=== PATIENT | male | born 1985 | race Caucasian/White ===

== ENCOUNTER → 2017-02-04 17:12 | Outpatient (CLI) | payer MEDICAID | END | disposition home or self-care (01) | LOC: D.LABREF 17:12 | DX: D17.9 Benign lipomatous neoplasm, unspecified (principal) ==

== ENCOUNTER → 2018-04-20 10:42 | Outpatient (CLI) | payer MEDICAID | END | disposition home or self-care (01) | LOC: D.MRI 10:30 | DX: R42 Dizziness and giddiness (principal) ==

== ENCOUNTER 2019-03-10 14:34 | Emergency (ER) | payer MEDICAID ==
[~2019-03-10] VITALS: Ht 180.3 cm; Wt 81.8 kg
[2019-03-10 14:39] VITALS: Ht 180.3 cm; Wt 81.8 kg
[2019-03-10] MEDS ORDERED: OMEPRAZOLE20 M1 PO (14:41)
[2019-03-10] MEDS ORDERED: [UNRECOGNIZED DRUG - OTHER] (14:41)
[2019-03-10 15:05] LABS: APPEARANCE CLEAR (CLEAR); BILIRUBIN NEGATIVE (NEGATIVE); COLOR STRAW (YELLOW); GLUCOSE NEGATIVE (NEGATIVE); KETONE NEGATIVE (NEGATIVE); NITRITE NEGATIVE (NEGATIVE); PROTEIN NEGATIVE (NEGATIVE); SPECIFIC GRAVITY 1.005 (1.005-1.020); UROBILINOGEN NORMAL (NORMAL)
[2019-03-10 15:05] LABS: BASOPHILS 0.2 % (0-2); EOSINOPHILS 0.7 % (0-7); HEMATOCRIT 42.9 % (42.0-54.0); HEMOGLOBIN 15.7 g/dL (13.5-17.5); IMMATURE GRANULOCYTES 0.2 % (0-5); LYMPHOCYTES 21.7 % (15-50); MCH 32.9 pg (26.0-34.0); MCHC 36.6 g/dL (31.0-37.0); MCV 89.9 fL (80.0-100.0); MEAN PLATELET VOLUME 10.5 fL (7.4-10.4); MONOCYTES 8.6 % (2-11); NEUTROPHILS 68.6 % (40-80); PLATELET COUNT 197 10x3/uL (130-400); RBC 4.77 10x6/uL (4.20-6.10); RDW 13.3 % (11.5-14.5); WBC 10.7 10x3/uL (4.8-10.8)
[2019-03-10 15:11] LABS: UDS - AMPHET NEGATIVE QUAL (NEGATIVE); UDS - BARB NEGATIVE QUAL (NEGATIVE); UDS - BENZO NEGATIVE QUAL (NEGATIVE); UDS - COCAINE NEGATIVE QUAL (NEGATIVE); UDS - OPIATE NEGATIVE QUAL (NEGATIVE); UDS - PCP NEGATIVE QUAL (NEGATIVE); UDS - THC NEGATIVE QUAL (NEGATIVE)
[2019-03-10 15:16] LABS: ALBUMIN 4.4 g/dL (3.4-5.0); ALKALINE PHOSPHATASE 91 U/L (46-116); ALT (SGPT) 21 U/L (10-68); BILIRUBIN - TOTAL 0.99 mg/dL (0.2-1.3); CALC OSMOLALITY 282 mosm/kg (275-300); CALCIUM 9.5 mg/dL (8.5-10.1); CARBON DIOXIDE 24.3 mmol/L (21.0-32.0); CHLORIDE - SERUM 105 mmol/L (98-107); CREATINE KINASE 195 UL (21-232); GLUCOSE 109 mg/dL (74-106); POTASSIUM - SERUM 3.3 mmol/L (3.5-5.1); PROTEIN - SERUM 7.8 g/dL (6.4-8.2); SODIUM 142 mmol/L (136-145); UREA NITROGEN 9 mg/dL (7-18); eGFR NON AFRICAN AMERICAN 90 mL/min (90-120)
[2019-03-10 16:44] VITALS: BP 126/76
== END 2019-03-10 16:46 | disposition home or self-care (01) ==
LOC: D.ER 14:34
PROVIDERS: Family Medicine
DX: F41.9 Anxiety disorder, unspecified (principal); G47.00 Insomnia, unspecified

== ENCOUNTER 2020-09-05 20:50 | Emergency (ER) | payer MEDICAID ==
[~2020-09-05] VITALS: Ht 180.3 cm; Wt 74.5 kg
[~2020-09-05 20:50] MED LIST: CYCLOBENZAPRINE10 MG PO; OMEPRAZOLE20 M1 PO; [UNRECOGNIZED DRUG - OTHER]
[2020-09-05 20:54] VITALS: Ht 180.3 cm; Wt 74.5 kg
[2020-09-05] MEDS ORDERED: CARAFATE1 G PO (20:56)
[2020-09-05] MEDS ORDERED: LEVAQUIN750 MG PO (20:57)
[2020-09-05 22:12] LABS: BASOPHILS 0.1 % (0-2); EOSINOPHILS 1.8 % (0-7); HEMATOCRIT 40.9 % (42.0-54.0); LYMPHOCYTE ABS# 3.23 10x3/uL (1.32-3.57); LYMPHOCYTES 41.3 % (15-50); MCH 32.3 pg (26.0-34.0); MCHC 34.2 g/dL (31.0-37.0); MCV 94.2 fL (80.0-100.0); MEAN PLATELET VOLUME 10.9 fL (7.4-10.4); MONOCYTES 9.1 % (2-11); NEUTROPHIL ABS# 3.74 10x3/uL (1.78-5.38); NEUTROPHILS 47.7 % (40-80); PLATELET COUNT 199 10x3/uL (130-400); RBC 4.34 10x6/uL (4.20-6.10); RDW 13.4 % (11.5-14.5); WBC 7.8 10x3/uL (4.8-10.8)
[2020-09-05 22:16] LABS: BILIRUBIN NEGATIVE (NEGATIVE); KETONE MODERATE mg/dL (NEGATIVE); NITRITE NEGATIVE (NEGATIVE); UROBILINOGEN NORMAL mg/dL (< 2)
[2020-09-05 22:20] LABS: CALC OSMOLALITY 277 mosm/kg (275-300); CALCIUM 8.6 mg/dL (8.5-10.1); CHLORIDE - SERUM 105 mmol/L (98-107); GLUCOSE 91 mg/dL (74-106); POTASSIUM - SERUM 3.4 mmol/L (3.5-5.1); SODIUM 140 mmol/L (136-145); UREA NITROGEN 10 mg/dL (7-18); eGFR NON AFRICAN AMERICAN 89 mL/min (90-120)
[2020-09-05 22:25] LABS: ALBUMIN 3.8 g/dL (3.4-5.0); ALT (SGPT) 15 U/L (10-68); AMYLASE - SERUM 48 U/L (25-115); LIPASE 149 U/L (73-393)
[2020-09-05 22:41] LABS: ALKALINE PHOSPHATASE 72 U/L (30-120); BILIRUBIN - TOTAL 1.03 mg/dL (0.2-1.3); PROTEIN - SERUM 6.4 g/dL (6.4-8.2)
[2020-09-06] MEDS ORDERED: ZOFRAN ODT4 MG/UDTAB PO (02:55)
[2020-09-06] MEDS ORDERED: PROTONIX40 MG PO (02:55)
[2020-09-06 03:45] VITALS: BP 104/68
== END 2020-09-06 03:46 | disposition home or self-care (01) ==
LOC: D.ER 20:50
PROVIDERS: Family Medicine
DX: K29.70 Gastritis, unspecified, without bleeding (principal); R10.13 Epigastric pain

== ENCOUNTER 2020-10-08 09:34 | Day surgery (SDC) | payer MEDICAID ==
[~2020-10-08] VITALS: Ht 180.3 cm; Wt 75.0 kg
[~2020-10-08 09:34] MED LIST changes: +CARAFATE1 G PO; +LEVAQUIN750 MG PO; +PROTONIX40 MG PO; +ZOFRAN ODT4 MG/UDTAB PO
[2020-10-08] MEDS ORDERED: ATIVAN0.5 MG (11:05)
[2020-10-08] MEDS ORDERED: XANAX0.25 MG (11:05)
[2020-10-08 11:18] VITALS: BP 114/84; BMI 23.4
[2020-10-08 11:23] VITALS: BP 114/84; Ht 180.3 cm; Wt 75.0 kg
--- NOTE | 2020-10-08 15:37 | NUR ---
1530 IV REMOVED AND INSTRUCTIONS GIVEN
--- NOTE | 2020-10-09 09:44 | OP ---
PATIENT NAME: BIRDIE JACOBSEN MEDICAL RECORD: [id number] :81 LOCATION:D.OPS ADMISSION DATE: SURGEON: KOKI ORANTES MD DATE OF OPERATION: 10/08/2020 PREOPERATIVE DIAGNOSES: 1. Hematochezia. 2. Dysphagia. 3. Weight loss. 4. Gastroesophageal reflux disease. 5. Epigastric abdominal pain. POSTOPERATIVE DIAGNOSES: 1. Hematochezia. 2. Dysphagia. 3. Weight loss. 4. Gastroesophageal reflux disease. 5. Epigastric abdominal pain. 6. Small hiatal hernia, questionable Lopez's esophagus, moderate duodenitis with erosions. Moderate gastritis with erosions. Normal colon and rectum. PROCEDURE: 1. Esophagogastroduodenoscopy with gastric and distal esophageal biopsies to check for H. pylori. 2. Esophageal dilation with [id number]-[id number]-[id number] balloon to 60-[place]. 3. Total colonoscopy to cecum. SURGEON: Koki Orantes MD PRODUCT DELIVERY SPECIALIST: None. BLOOD LOSS: Minimal. ANESTHESIA: IV sedation. COMPLICATIONS: None. The patient was conveyed to the endoscopy suite electively on 10/08/2020. IV sedation was induced by the anesthesia staff. A bite block was inserted. A gastroscope was inserted into the mouth. It was advanced easily into the hypopharynx. Esophagus was easily intubated as were the stomach and duodenum. Upon withdrawal, retroflexed and angulus views were obtained. Antral biopsies were obtained. I withdrew the cardia of the stomach. I advanced through the catheter balloon through the endoscope. I sequentially dilated the entire length of the esophagus at 60 [place]. The gastroscope and balloon dilator were then removed and readvanced the gastroscope. There has been no evidence of false passage or perforation. I then withdrew to the EG junction and cold endoscopic biopsies were obtained in an area that was suspicious for Lopez's esophagus. I then withdrew the endoscope. The patient was turned 180 degrees and placed in the Diana position. Digital rectal examination was performed. A colonoscope was inserted through the anus. It was easily advanced to the cecum. The prep was adequate. I slowly withdrew OPERATIVE REPORT [id number] BIRDIE JACOBSEN the endoscope. I irrigated and aspirated extensively. I dragged the folds. A combination of normal imaging and narrow band imaging were utilized. The pullback was greater than a 13-minute pullback. Retroflex was used to obtained in the rectum. I then un-retroflexed and the scope and removed it under direct vision. The patient is already on Protonix and Carafate. It may be that we needs to add an H2 miki at night due to the duodenitis and gastritis. TRANSINT:[id number] Voice Confirmation ID: [id number] DOCUMENT ID: [id number] KOKI ORANTES MD at 0944 CC: GEO LIANG [id number] DICTATION DATE: 10/08/20 1455 WINDOW MACHINE OPERATOR: 10/08/20 2217 [facility] 10/08/20 [facility] [address] [place] [address]
== END 2020-10-08 15:30 | disposition home or self-care (01) ==
LOC: D.OPS 09:34
PROVIDERS: ATTEND Surgery
DX: K92.1 Melena (principal); R63.4 Abnormal weight loss; R13.10 Dysphagia, unspecified; R10.13 Epigastric pain; K21.9 Gastro-esophageal reflux disease without esophagitis; K44.9 Diaphragmatic hernia without obstruction or gangrene; K22.70 Barrett's esophagus without dysplasia; K29.80 Duodenitis without bleeding; K29.60 Other gastritis without bleeding; K59.00 Constipation, unspecified; F17.200 Nicotine dependence, unspecified, uncomplicated

== ENCOUNTER → 2020-10-27 09:15 | Outpatient (CLI) | payer MEDICAID ==
[2020-10-08 11:23] VITALS: BMI 23.0
[~2020-10-27 09:15] MED LIST changes: +ATIVAN0.5 MG; +XANAX0.25 MG
== END | disposition home or self-care (01) ==
LOC: D.MRI 09:15
PROVIDERS: ATTEND Family Medicine
DX: F95.8 Other tic disorders (principal)